=== PATIENT | male | born 1950 | race Native Hawaiian/Other Pacific Islander ===

== ENCOUNTER 2022-02-19 22:47 | Emergency (ER) | payer OTHER ==
[~2022-02-19] VITALS: Ht 182.9 cm; Wt 113.4 kg
[2022-02-19 23:00] VITALS: TEMP 97.9
[2022-02-19 23:29] LABS: PLATELET COUNT 98 K/uL (142-355)
[2022-02-19 23:35] LABS: POTASSIUM 3.8 mmol/L (3.6-5.2)
[2022-02-19 23:45] LABS: PARTIAL THROMBOPLASTIN TIME 22.7 SECONDS (24.5-33.6)
[2022-02-20 00:21] VITALS: BP 139/91
== END 2022-02-20 00:21 | disposition home or self-care (01) ==
LOC: ED 22:47
PROVIDERS: Emergency Medicine
DX: K30 Functional dyspepsia (principal)
CPT/HCPCS: 36415; 80053; 83880; 84484; 85007; 85027; 85379; 85610; 85730; 93005; 99284